=== PATIENT | female | born 1990 ===

== ENCOUNTER 2023-11-19 17:35 | Emergency (ER) | payer OTHER ==
[~2023-11-19] VITALS: Ht 170.2 cm; Wt 68.0 kg
[2023-11-19] MEDS ORDERED: Trimethoprim/Sulfamethoxazole DS Tab PO ONE (19:35)
[2023-11-19] MEDS ORDERED: Bactrim Ds Tab1 EACH PO (19:53)
== END 2023-11-19 20:22 | disposition home or self-care (01) ==
LOC: ER 17:35
DX: L02.211 Cutaneous abscess of abdominal wall (principal)
CPT/HCPCS: 76857; A9270

== ENCOUNTER 2023-11-20 05:49 | Emergency (ER) | payer OTHER ==
[~2023-11-20] VITALS: Ht 170.2 cm; Wt 88.5 kg
[~2023-11-20 05:49] MED LIST: Bactrim Ds Tab1 EACH PO
== END 2023-11-20 06:50 | disposition home or self-care (01) ==
LOC: ER 05:49
DX: L02.216 Cutaneous abscess of umbilicus (principal)
CPT/HCPCS: 99282

== ENCOUNTER 2024-01-30 07:11 | Emergency (ER) | payer OTHER ==
[~2024-01-30] VITALS: Ht 170.2 cm; Wt 85.7 kg
[2024-01-30] MEDS ORDERED: Permethrin60 GM TOP (08:55)
== END 2024-01-30 09:00 | disposition home or self-care (01) ==
LOC: ER 07:11
DX: R21 Rash and other nonspecific skin eruption (principal)
CPT/HCPCS: 99282

== ENCOUNTER 2024-06-19 05:29 | Emergency (ER) | payer OTHER ==
[~2024-06-19] VITALS: Ht 170.2 cm; Wt 85.7 kg
[~2024-06-19 05:29] MED LIST changes: +Permethrin60 GM TOP
== END 2024-06-19 06:11 | disposition left against medical advice (07) ==
LOC: ER 05:29
DX: K08.89 Other specified disorders of teeth and supporting structures (principal); Z53.21 Procedure and treatment not carried out due to patient leaving prior to being seen by health care provider